=== PATIENT | male | born 1995 | race African-American/Black ===

== ENCOUNTER 2018-02-04 19:20 | Emergency (ER) | payer SELFPAY ==
[~2018-02-04] VITALS: Ht 175.3 cm; Wt 59.0 kg
[2018-02-04 19:36] VITALS: BP 120/54
--- NOTE | 2018-02-04 19:41 | PHYS DOC ---
Adult General Chief Complaint Chief Complaint: SEXUALLY TRANSMITTED DISEASE HPI HPI Patient is a 22 year old male who presents for STD treatment. Patient's significant other was seen earlier today and was positive for Trichomonas. Patient denies any symptoms. Review of Systems Review of Systems Constitutional: Denies fever or chills [] GI: Denies abdominal pain, nausea, vomiting, bloody stools or diarrhea [] : Concerns for STDs. Denies dysuria or hematuria [] Musculoskeletal: Denies back pain or joint pain [] Integument: Denies rash or skin lesions [] Neurologic: Denies headache, focal weakness or sensory changes [] All other systems were reviewed and found to be within normal limits, except as documented in this note. Current Medications Current Medications Current Medications Medications (Trade) Dose Ordered Sig/Verito Start Time Stop Time Status Last Admin Dose Admin Azithromycin (Zithromax) 1,000 mg 1X ONCE 02/04/18 19:45 02/04/18 19:46 UNV Ceftriaxone Sodium (Rocephin Im) 250 mg 1X ONCE 02/04/18 19:45 02/04/18 19:46 UNV Metronidazole (Flagyl) 2,000 mg 1X ONCE 02/04/18 19:45 02/04/18 19:46 UNV Physical Exam Physical Exam Constitutional: Well developed, well nourished, no acute distress, non-toxic appearance. [] Abdomen: Bowel sounds normal, soft, no tenderness, no masses, no pulsatile masses. [] Skin: Warm, dry, no erythema, no rash. [] Back: No tenderness, no CVA tenderness. [] Extremities: No tenderness, no cyanosis, no clubbing, ROM intact, no edema. [] Neurologic: Alert and oriented X 3, normal motor function, normal sensory function, no focal deficits noted. [] Psychologic: Affect normal, judgement normal, mood normal. [] EKG EKG [] Radiology/Procedures Radiology/Procedures [] Course & Med Decision Making Course & Med Decision Making Pertinent Labs and Imaging studies reviewed. (See chart for details) This is a 22-year-old male patient presenting to the ED today for STD treatment. Significant other was seen earlier today by me and was positive for Trichomonas. Patient was given Flagyl Rocephin and azithromycin. STD education provided especially the need to use protection. Dragon Disclaimer Dragon Disclaimer This electronic medical record was generated, in whole or in part, using a voice recognition dictation system. Departure Departure Impression: Primary Impression: Concern about STD in male without diagnosis Disposition: 01 HOME, SELF-CARE Condition: STABLE Patient Instructions: Sexually Transmitted Disease Additional Instructions: You were treated for sexually transmitted diseases. Use protection at all times. Follow-up with the health department for further concerns. VIC THOMPSON APRN Feb 04, 2018 19:41
[2018-02-04] MEDS ORDERED: metroNIDAZOLE 500 MG TABLET PO ONE (19:45)
[2018-02-04] MEDS ORDERED: cefTRIAXone IM 250 MG VIAL IM ONE (19:45)
[2018-02-04] MEDS ORDERED: AZITHROMYCIN 250 MG TABLET. PO ONE (19:45)
== END 2018-02-04 19:56 | disposition home or self-care (01) ==
LOC: ER 19:20
DX: Z20.2 Contact with and (suspected) exposure to infections with a predominantly sexual mode of transmission (principal)
CPT/HCPCS: 96372; 99283; J0696; Q0144